=== PATIENT | female | born 1985 | race Caucasian/White ===

== ENCOUNTER 2017-07-13 06:09 | Day surgery (SDC) | payer OTHER ==
[~2017-07-13] VITALS: Ht 152.4 cm; Wt 55.3 kg
[~2017-07-13 06:09] MED LIST: AMOX500 PO; CITA20; CRUTCH3 USE; Depo-Prove150 MG/11 IM; ESCI20; GABA100 PO; HYDACE5 PO; IBUP600 PO; MEDR150I; NAPR375 PO; OXYACE5T PO; PENVK500 PO; PREG25; RXCLIN PO; RXHYDACE PO; TOCO400; TRAM50 PO; VENL75
[2017-07-14 04:09] LABS: BASOPHILS ABSOLUTE AUTO 0.02 K/mm3 (0.00-0.23); BASOPHILS PERCENT AUTO 0 % (0-2); EOSINOPHILS ABSOLUTE AUTO 0.03 K/mm3 (0.00-0.68); EOSINOPHILS PERCENT AUTO 0 % (0-6); Hematocrit 34.1 % (33.0-51.0); Hemoglobin 11.7 g/dL (11.5-16.0); IMMATURE GRAN ABSOLUTE AUTO 0.04 K/mm3 (0.00-0.10); IMMATURE GRAN PERCENT AUTO 0 % (0-1); LYMPHOCYTES ABSOLUTE AUTO 4.22 K/mm3 (0.84-5.20); LYMPHOCYTES PERCENT AUTO 33 % (21-46); MONOCYTES ABSOLUTE AUTO 1.01 K/mm3 (0.16-1.47); MONOCYTES PERCENT AUTO 8 % (4-13); Mean Corpuscular HGB 31.1 pg (26.0-34.0); Mean Corpuscular HGB Conc 34.3 g/dL (31.5-36.5); Mean Corpuscular Volume 91 fL (80-100); Mean Platelet Volume 10.9 fL (9.1-12.4); NEUTROPHILS ABSOLUTE AUTO 7.38 K/mm3 (1.96-9.15); NEUTROPHILS PERCENT AUTO 58 % (41-73); Platelet Count 189 K/mm3 (150-400); RDW Coefficient Variation 11.9 % (11.7-14.2); RDW Standard Deviation 39.6 fL (35.1-46.3); Red Blood Cell Count 3.76 M/mm3 (3.80-5.20)
[2017-07-14] MEDS ORDERED: IBUP800 PO (08:40)
[2017-07-14] MEDS ORDERED: Percocet 5-3251 EACH PO (08:41)
== END 2017-07-14 08:59 | disposition home or self-care (01) ==
LOC: ORSCMMR 06:09 → ORD 07:30 → ORSCMMR 09:00 → ORD 09:00 → SURS 09:45 → ORSCMMR 07-14 08:59
PROVIDERS: Obstetrics & Gynecology
PROC: 0UT7FZZ Resection of Bilateral Fallopian Tubes, Via Natural or Artificial Opening With Percutaneous Endoscopic Assistance (ICD-10-PCS; principal; 2017-07-13 07:30)
PROC: 0UT9FZZ Resection of Uterus, Via Natural or Artificial Opening With Percutaneous Endoscopic Assistance (ICD-10-PCS; principal; 2017-07-13 07:30)
PROC: 0UT0FZZ Resection of Right Ovary, Via Natural or Artificial Opening With Percutaneous Endoscopic Assistance (ICD-10-PCS; principal; 2017-07-13 07:30)
DX: N80.3 Endometriosis of pelvic peritoneum (principal); R10.2 Pelvic and perineal pain; F17.210 Nicotine dependence, cigarettes, uncomplicated
CPT/HCPCS: 36415; 85025; 88307; J0171; J0690; J1100; J1170; J1885; J2250; J2405; J3010; J7120

== ENCOUNTER 2019-04-16 18:33 | Observation (INO) | payer OTHER ==
[~2019-04-16] VITALS: Ht 152.4 cm; Wt 52.2 kg
[~2019-04-16 18:33] MED LIST changes: +IBUP800 PO; +Percocet 5-3251 EACH PO
[2019-04-16] MEDS ORDERED: Prozac20 MG PO (19:27)
[2019-04-16] MEDS ORDERED: Atarax10 MG PO (19:32)
[2019-04-16 19:39] LABS: Source, Urine Clean Catch
[2019-04-16 19:39] LABS: BASOPHILS ABSOLUTE AUTO 0.04 K/mm3 (0.00-0.23); BASOPHILS PERCENT AUTO 0 % (0-2); EOSINOPHILS PERCENT AUTO 1 % (0-6); Hematocrit 41.3 % (33.0-51.0); IMMATURE GRAN ABSOLUTE AUTO 0.03 K/mm3 (0.00-0.10); IMMATURE GRAN PERCENT AUTO 0 % (0-1); LYMPHOCYTES ABSOLUTE AUTO 2.59 K/mm3 (0.84-5.20); LYMPHOCYTES PERCENT AUTO 26 % (21-46); MONOCYTES ABSOLUTE AUTO 0.67 K/mm3 (0.16-1.47); MONOCYTES PERCENT AUTO 7 % (4-13); Mean Corpuscular HGB 31.8 pg (26.0-34.0); Mean Corpuscular HGB Conc 33.9 g/dL (31.5-36.5); Mean Corpuscular Volume 94 fL (80-100); Mean Platelet Volume 9.9 fL (9.1-12.4); NEUTROPHILS ABSOLUTE AUTO 6.51 K/mm3 (1.96-9.15); NEUTROPHILS PERCENT AUTO 66 % (41-73); Platelet Count 287 K/mm3 (150-400); RDW Coefficient Variation 12.1 % (11.7-14.2); RDW Standard Deviation 42.2 fL (35.1-46.3); White Blood Cell Count 9.94 K/mm3 (4.00-11.30)
[2019-04-16 19:45] LABS: Appearance, Urine Clear (Clear); Bilirubin, Urine Neg (Neg); Blood, Urine Neg (Neg); Color, Urine Yellow (P-Yellow); Glucose Qualitative, Urine Neg (Neg); Ketones, Urine 1+ (Neg); Leukocyte Esterase, Urine Neg (Neg); Nitrite, Urine Neg (Neg); Protein, Urine Neg (Neg); Urobilinogen, Urine NORM (Normal)
[2019-04-16 19:56] LABS: U Amphetamine Screen Not Detected; U Barbituate Screen Not Detected; U Benzodiazapine Screen DETECTED; U Buprenorphine Screen Not Detected; U Cannabinoids Screen DETECTED; U Cocaine Screen Not Detected; U Methadone Screen Not Detected; U Methamphetamine Screen Not Detected; U Opiates Screen DETECTED; U Oxycodone Screen DETECTED; U Phencyclidine Screen Not Detected; U Propoxyphene Screen Not Detected
[2019-04-16 19:58] LABS: Alanine Aminotransfer (ALT/SGP 24 U/L (12-78); Albumin, Blood 3.9 g/dL (3.4-5.0); Albumin/Globulin Ratio 1.3 (0.8-1.8); Alk Phos 70 U/L (50-136); Anion Gap 5 mmol/L (6-16); Aspartate Aminotrans (AST/SGOT 14 U/L (12-37); Bilirubin, Total 0.5 mg/dL (0.1-1.0); Blood Urea Nitrogen 10 mg/dL (8-24); CO2, Blood 25 mmol/L (21-32); Calcium, Blood 8.8 mg/dL (8.5-10.1); Chloride, Blood 111 mmol/L (98-108); Creatinine, Blood 0.77 mg/dL (0.40-1.00); Ethanol (Alcohol), Blood, Med <3 mg/dL; Glomerular Filtration Rate >60 (60-); Glucose, Blood 96 mg/dL (70-99); Potassium, Blood 3.9 mmol/L (3.5-5.5); Salicylate 4.7 mg/dL (2.8-20.0); Sodium, Blood 141 mmol/L (136-145); Total Protein, Blood 6.9 g/dL (6.4-8.2)
[2019-04-16 20:03] LABS: Acetaminophen, Random <2.0 ug/mL (10.0-30.0)
== END 2019-04-18 19:20 | disposition short-term general hospital (02) ==
LOC: ER 18:33 → EOR 18:34
PROVIDERS: Physician Assistant; ADMIT Emergency Medicine
DX: F31.4 Bipolar disorder, current episode depressed, severe, without psychotic features (principal); S60.812A Abrasion of left wrist, initial encounter; S60.811A Abrasion of right wrist, initial encounter; F43.10 Post-traumatic stress disorder, unspecified; F43.20 Adjustment disorder, unspecified; F17.210 Nicotine dependence, cigarettes, uncomplicated; Z79.899 Other long term (current) drug therapy; Z88.8 Allergy status to other drugs, medicaments and biological substances; Z90.710 Acquired absence of both cervix and uterus; Z90.721 Acquired absence of ovaries, unilateral; Z90.79 Acquired absence of other genital organ(s); X78.8XXA Intentional self-harm by other sharp object, initial encounter
CPT/HCPCS: 80053; 81003; 81025; 84443; 85025; 90471; 90714; 99285-25; G0378; G0480; Q3014

== ENCOUNTER 2024-03-27 18:48 | Observation (INO) | payer OTHER ==
[~2024-03-27] VITALS: Ht 165.1 cm; Wt 68.0 kg
[~2024-03-27 18:48] MED LIST changes: +Atarax10 MG PO; +Prozac20 MG PO
[2024-03-27] MEDS ORDERED: Droperidol 5 mg/2 ml Vial IM PRN (20:50)
[2024-03-27 21:21] LABS: BASOPHILS ABSOLUTE AUTO 0.04 K/mm3 (0.00-0.23); BASOPHILS PERCENT AUTO 0 % (0-2); EOSINOPHILS ABSOLUTE AUTO 0.23 K/mm3 (0.00-0.68); EOSINOPHILS PERCENT AUTO 2 % (0-6); Hematocrit 43.2 % (33.0-51.0); Hemoglobin 14.9 g/dL (11.5-16.0); IMMATURE GRAN ABSOLUTE AUTO 0.04 K/mm3 (0.00-0.10); IMMATURE GRAN PERCENT AUTO 0 % (0-1); LYMPHOCYTES ABSOLUTE AUTO 2.86 K/mm3 (0.84-5.20); LYMPHOCYTES PERCENT AUTO 27 % (21-46); MONOCYTES ABSOLUTE AUTO 0.68 K/mm3 (0.16-1.47); MONOCYTES PERCENT AUTO 6 % (4-13); Mean Corpuscular HGB Conc 34.5 g/dL (31.5-36.5); Mean Corpuscular Volume 87 fL (80-100); Mean Platelet Volume 9.5 fL (9.1-12.4); NEUTROPHILS ABSOLUTE AUTO 6.89 K/mm3 (1.96-9.15); NEUTROPHILS PERCENT AUTO 64 % (41-73); Platelet Count 360 K/mm3 (150-400); RDW Coefficient Variation 12.4 % (11.7-14.2); RDW Standard Deviation 39.3 fL (35.1-46.3); Red Blood Cell Count 4.96 M/mm3 (3.80-5.20); White Blood Cell Count 10.74 K/mm3 (4.00-11.30)
[2024-03-27 21:39] LABS: Acetaminophen, Random <2.0 ug/mL (10.0-30.0); Alanine Aminotransfer (ALT/SGP 19 U/L (12-78); Albumin, Blood 3.7 g/dL (3.4-5.0); Albumin/Globulin Ratio 1.1 (0.8-1.8); Alk Phos 98 U/L (50-136); Anion Gap 11 mmol/L (3-11); Aspartate Aminotrans (AST/SGOT 15 U/L (12-37); Bilirubin, Total 0.3 mg/dL (0.1-1.0); Blood Urea Nitrogen 12 mg/dL (8-24); Bun/Creatinine Ratio 16.2 (12.0-20.0); CO2, Blood 18 mmol/L (21-32); Calcium, Blood 9.2 mg/dL (8.5-10.1); Chloride, Blood 115 mmol/L (98-108); Creatinine, Blood 0.74 mg/dL (0.40-1.00); Ethanol (Alcohol), Blood, Med <3 mg/dL; Globulin, Blood 3.3 g/dL (2.2-4.0); Glomerular Filtration Rate 104 (60-); Glucose, Blood 97 mg/dL (70-99); Potassium, Blood 3.7 mmol/L (3.5-5.5); Salicylate 4.8 mg/dL (2.8-20.0); Sodium, Blood 140 mmol/L (136-145)
[2024-03-28] MEDS ORDERED: QUET25 (05:57)
[2024-03-28] MEDS ORDERED: PRAZ2 PO (05:58)
[2024-03-28] MEDS ORDERED: ABILIFY MYCITE15 M2 PO (05:58)
[2024-03-28] MEDS ORDERED: DESV50 PO (05:59)
[2024-03-28] MEDS ORDERED: LORA.5 (05:59)
[2024-03-28] MEDS ORDERED: Divalproex Sod125 M1 PO (07:58)
[2024-03-28] MEDS ORDERED: DESVENLAFAXINE25 MG PO (07:59)
[2024-03-28 08:50] VITALS: BP 124/78
[2024-03-28] MEDS ORDERED: LORazepam 1 MG Tab PO ONE (09:00)
[2024-03-28] MEDS ORDERED: LORazepam 2 MG/ML 1ML Injection IV ONE (09:00)
[2024-03-28 12:21] LABS: U Amphetamine Screen DETECTED; U Barbituate Screen Not Detected; U Benzodiazapine Screen DETECTED; U Buprenorphine Screen Not Detected; U Cannabinoids Screen DETECTED; U Cocaine Screen Not Detected; U Methadone Screen Not Detected; U Methamphetamine Screen DETECTED; U Opiates Screen Not Detected; U Oxycodone Screen DETECTED; U Phencyclidine Screen Not Detected
[2024-03-28] MEDS ORDERED: ARIPiprazole 10 MG Tab PO ONE (13:50)
== END 2024-03-28 15:14 | disposition other institution (70) ==
LOC: ER 18:48 → EOR 18:49
PROVIDERS: ADMIT Emergency Medicine
DX: F31.60 Bipolar disorder, current episode mixed, unspecified (principal); R45.851 Suicidal ideations; F43.10 Post-traumatic stress disorder, unspecified; F17.200 Nicotine dependence, unspecified, uncomplicated; Z88.8 Allergy status to other drugs, medicaments and biological substances
CPT/HCPCS: 80053; 80320; 84703; 85025; 96372; 99285-25; A9270; G0378; G0480; J1790

== ENCOUNTER 2024-03-28 11:20 | Inpatient (IN) | payer OTHER ==
[~2024-03-28 11:20] MED LIST changes: +ABILIFY MYCITE15 M2 PO; +DESV50 PO; +DESVENLAFAXINE25 MG PO; +Divalproex Sod125 M1 PO; +LORA.5; +PRAZ2 PO; +QUET25
[2024-03-28] MEDS ORDERED: OLANZapine ODT 10 MG Tab MM PRN ×2 (14:15→16:05)
[2024-03-28] MEDS ORDERED: Polyethylene Glycol 3350 17 gm PO PRN (14:15)
[2024-03-28] MEDS ORDERED: Ondansetron 4 MG SoluTab MM PRN (14:15)
[2024-03-28] MEDS ORDERED: HydrOXYzine Pamoate 50 MG Cap PO PRN (14:20)
[2024-03-28] MEDS ORDERED: FLU VACC TS2024-25(6MOS UP)/PF 45 MCG/0.5 ML SYRINGE IM PRN (14:20)
[2024-03-28] MEDS ORDERED: Melatonin 3 MG Tab PO PRN (14:20)
[2024-03-28] MEDS ORDERED: Calcium Carbonate 500 MG Tab Chew PO PRN (14:20)
[2024-03-28] MEDS ORDERED: TraZODone HCl 50 MG Tab PO PRN (14:20)
[2024-03-28] MEDS ORDERED: Acetaminophen 325 MG TABLET PO PRN (14:20)
[2024-03-28] MEDS ORDERED: Ibuprofen 600 MG Tab PO PRN (14:20)
[2024-03-28] MEDS ORDERED: Aluminum Hydroxide 320MG/5ML 473 ML PO PRN (14:20)
[2024-03-28] MEDS ORDERED: LORazepam 1 MG Tab PO PRN (16:05)
[2024-03-28] MEDS ORDERED: DiphenhydrAMINE HCl 50 MG Cap PO PRN (16:05)
[2024-03-28] MEDS ORDERED: LORazepam 2 MG Tab PO PRN (16:05)
[2024-03-28] MEDS ORDERED: Haloperidol 5 MG Tab PO PRN (16:15)
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
--- NOTE | 2024-03-28 18:09 | NUR ---
SHIFT SUMMARY PT A/O X4; UNCOOPERATIVE WITH CARE, VERBALLY AGGRESSIVE, AND TEARFUL. PT HAS BEEN SLEEPING IN HER ROOM SINCE ADMISSION. UNWILLING TO ANSWER ADMISSION QUESTIONS AT THIS TIME. MONITORED VIA Q15 ROUNDING FOR SAFETY.
--- NOTE | 2024-03-29 05:32 | NUR ---
SHIFT SUMMARY At the beginning of the shift, pt was lying on her bed with eyes closed and appeared to be asleep. Respirations regular and unlabored, no apparent distress. No HS meds are scheculed. At about 0245 pt was up to nurses station asking to use the restroom. Pt was told there is a bathroom in her room and was taken back to her room by a staff member. Pt c/o being dizzy; BP 125/74 HR 76. Pt offered and drank water. Pt was very labile and stated that she was "scared." Featherer offered PRN lorazepam, which she accepted. Pt currently sleeping. Staff continues to monitor for safety and wellness.
[2024-03-29 08:23] VITALS: BP 150/108
[2024-03-29] MEDS ORDERED: Multivitamins 1 Tab PO SCH (09:00)
--- NOTE | 2024-03-29 09:49 | NUR ---
PT AGITATED, CONFRONTATIONAL, AND VERBALLY ABUSIVE. PT IS UPSET DUE TO HOME MEDICATIONS NOT BEING ORDERED YET. PT UNSURE OF WHAT SHE TAKES AND LIST OBTAINED FROM PHARMACY AT THIS TIME. PT WILLING TO TAKE PO ATIVAN, AND PO ATIVAN GIVEN BY THIS RN AT THIS TIME.
[2024-03-29] MEDS ORDERED: LORazepam 0.5 MG Tab PO PRN (10:45)
[2024-03-29] MEDS ORDERED: ARIPiprazole 5 MG Tab PO SCH (10:56)
--- NOTE | 2024-03-29 17:31 | NUR ---
SHIFT SUMMARY PT A/O X3. SHE IS COMPLIANT WITH MEDICATIONS, BUT IS TEARFUL, LABILE, AND AGITATED. SHE DID NOT PARTICIPATE IN ANY GROUPS BUT DID EAT BREAKFAST AND DINNER. SHE HAD VISITORS TODAY AND SHE HAD TEARFUL OUTBURSTS DURING BOTH VISITS. PT MEDICATED PER EMR FOR AGITATION. SHE DECLINED TO PARTICIPATE IN MOST ASSESSMENT QUESTIONS BUT THIS AM SHE DENIED SI OR ANY HALLUCINATIONS. PT MONITORED VIA Q15 ROUNDING FOR SAFETY.
[2024-03-29 20:34] VITALS: BP 132/80
[2024-03-29 21:00] VITALS: BP 132/80
[2024-03-29] MEDS ORDERED: Divalproex Sodium 125 MG CAP PO SCH (21:00)
[2024-03-29] MEDS ORDERED: Prazosin HCl 1 MG Cap PO SCH (21:00)
[2024-03-29] MEDS ORDERED: QUEtiapine Fumarate 25 MG Tab PO SCH (21:00)
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
--- NOTE | 2024-03-30 02:59 | NUR ---
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 Synagogue is [employer]. Has a outpatient case manager with [facility]; former outpatient case manager was Joelle Pope, but this individual recently left [facility].
--- NOTE | 2024-03-30 04:07 | NUR ---
Shift Summary: Night Pt completed admission papers. Denied SI/HI/AVH. Mood labile, affect congruent. Tearful when describing events leading to admit. Stated she has not engaged in cutting for approximately 5 months, no street drugs x2.5 weeks. Intermittent eye contact. Med compliant. Received multiple PRNs (see MAR) for sleeplessness, with moderate results. Denied physical complaints. Retired to bed without complications, but awoke intermittently throughout the night. Withdrawn to room for the majority of the evening, but emerged for meds and snack. No complications.
[2024-03-30] MEDS ORDERED: DESVENLAFAXINE 25 MG PO SCH (09:00)
[2024-03-30] MEDS ORDERED: ARIPiprazole 5 MG Tab PO SCH (09:00)
--- NOTE | 2024-03-30 13:17 | NUR ---
ASSUMED PT CARE @0700. PT AA&OX4. SPEECH AND EYE CONTACT APPROPRIATE. MOOD IS "BETTER THAN YESTERDAY" AFFECT IS CALM. PT DENIES SI, HI, AVH. SHE DOES REPORT POOR SLEEP AND AND ANXIETY OVER RECENT MEDICATION CHANGES. THIS RN ADVISED THAT SHE DISCUSS MEDICATION CHANGES WITH DR. RAMÍREZ SHE VERBALIZED UNDERSTANDING. PT HAS BEEN COMPLIANT WITH MEDICATIONS AND CARE . WILL CONTINUE POC
--- NOTE | 2024-03-30 14:19 | NUR ---
COUNCELOR CALL PT SPOKE WITH YOGESH LOMBARDO FOR SHORT TIME. PT THEN REQUESTED STAFF TO TALK TO COUNCELOR. GIVEN VERBAL PERMISSION, THIS NURSE SPOKE WITH COUNCELOR WHO WAS CONCERNED ABOUT PT ADMIT. COUNCELOR REQUESTING CALL FOR F/U APPTS. COUNCELOR INFORMED PT CURRENTLY IN DBT 1X WEEK AND THERAPY 1X WEEK WITH HER. MUNIRA PAN [phone]
--- NOTE | 2024-03-30 16:56 | NUR ---
VISITOR PT HAD SISTER VISIT TODAY. DURING VISIT PT BECAME UPSET AND LEFT VISITING ROOM AND RETURNED TO ROOM. SISTER VISIBLY UPSET, ESCORTED TO EXIT. SISTER REPORTS BEEN DEALING WITH THIS AND GETS HARD AND NOBODY KNOWS THE BEST ANSWERS TO HELP. SISTER REPORTS SHE TRIES TO PLACE BOUNDARIES BUT PT USES THOSE BOUNDARIES AGAINST HER. PROVIDED FAMILY WITH SUPPORT AND REASSURANCE.
--- NOTE | 2024-03-30 18:09 | NUR ---
SHIFT SUMMARY PT MORE PLEASANT AND COOPERATIVE TODAY. MEDICATION CHANGES R/T PT REFUSALS. PT HAS SEVERAL PHONE CALLS INCLUDING COUNSELOR AND VISITORS. PT PARTICIPATED IN GROUP AND ACTIVITIES TODAY. NO ACUTE CHANGES THIS SHIFT. WILL CONTINUE TO MONITOR AND PROVIDE SUPPORT NECESSARY.
[2024-03-30 20:25] VITALS: BP 102/53
--- NOTE | 2024-03-30 20:39 | NUR ---
Shift Note: Night Received Pt at 1900. Pt denied SI/HI/AVH. Endorsed anxiety 10/27 due to "life stuff" and continued admit status. Denied depression. Mood downcast, affect calm. Denied pain and physical complaints. Med compliant. Received PRNs (see MAR) for sleeplessness. Completed wrap-up group during snack. Retired to bed without complications.
[2024-03-30] MEDS ORDERED: LamoTRIgine 25 MG Tab PO SCH (21:00)
--- NOTE | 2024-03-31 04:03 | NUR ---
Shift Summary: Night Pt was in her room resting but awake at the start of shift. Participated in assessment, denying SI/HI/AVH. Discussed plan for the evening, with which Pt agreed. Pt completed wrap-up group. Ate 100% of snack. Med compliant; received multiple PRNs (see MAR) for sleeplessness. Retired to bed for the evening after receiving meds. No complications.
[2024-03-31 07:58] VITALS: BP 135/88
[2024-03-31] MEDS ORDERED: ARIPiprazole 10 MG Tab PO SCH (09:00)
--- NOTE | 2024-03-31 10:30 | NUR ---
PT A/O X4. IS PLEASANT AND COOPERATIVE. DENIES SI AND A/V/H. STATES SLEPT REALLY WELL. STATES SINCE SHE HAS BEEN ADMITTED SHE FEELS THAT SHE IS MORE ORGANIZED AND FEELING BACK ON TRACK. . AND SHE NEEDED A REALITY CHECK TO GET HERSELF TOGETHER." UP IN GROUP AND ACTIVITY ROOM WITH PEERS. ILL CONTINUE TO MONITOR.
--- NOTE | 2024-03-31 17:11 | NUR ---
SHIFT SUMMARY: PT A/O X4. PLEASANT AND COOPERATIVE. MED COMPLIANT. PT DENIES SI AND A/V/H. HAS BEEN IN A GOOD MOOD ALL DAY. PARTICIPATED IN GROUP ATIVIES AND MINGLES IN THE [place]. STATE SHE IS GOING THROUGH A LOT AT THIS TIME IN HER LIFE. SHE WILL DISCHARGE TOMORROW AND GO HOME WITH SISTER ERIC. WILL CONTINUE TO MONITOR
[2024-03-31 21:23] VITALS: BP 131/78
--- NOTE | 2024-04-01 04:03 | NUR ---
PATIENT WAS IN THE GROUP ROOM AT THE BEGINNING OF THE SHIFT, WATCHING TELEVISION WITH PEERS AND STAFF. SHE TOOK HER MEDICATIONS EARLY BECAUSE SHE WANTED TO GO TO BED, AND WAS IN BED AWAKE AT SNACK TIME, BUT DECLINED SNACK. SHE WAS PLEASANT AND COOPERATIVE WITH CARES, INCLUDING EVENING MEDICATIONS. SHE HAD NO S/SX SUICIDAL IDEATION THIS SHIFT. SHE SPENT MOST OF THE SHIFT IN BED RESTING WITH EYES CLOSED AND RESPIRATIONS CONFIRMED. CONTINUING TO MONITOR FOR SAFETY WITH Q15 MINUTE CHECKS.
[2024-04-01 08:01] VITALS: BP 129/76
[2024-04-01] MEDS ORDERED: ABILIFY MYCITE20 M2 PO (11:12)
[2024-04-01] MEDS ORDERED: LAMO25 PO (11:14)
--- NOTE | 2024-04-01 12:00 | NUR ---
DISCHARGE NOTE. PT HAS BEEN IN A POSITIVE AND UP LIFTED MOOD. PT A/O X4. PRTICIPATED IN GROUP ACTIVIES THIS MORNING. IS EXCITED ABOUT BEING DISCHARGED THIS DAY. GIVEN DISCHARGE INSTRUCTIONS, EDUCATION MATERIALS, MEDICATION TEACHING, DECLINED OFFER OF NICOTINE CESSATION REFERRAL/CALL.. PT HAD NO BELONGINGS TO RETURN. WENT HOME IN PAPER SCRUBS. PRESCRIPTIONS CALLED INTO [facility] AND SPOKE TO THAI PHARMACIST AT 10:59. PT VERBALLY RETURNED UNDERSTANDING OF INSTRUCTIONS. PT OUT TO FRIENDS CAR TO GO HOME. AMBULATED OUT WITHOUT DIFFICULITY.
== END 2024-04-01 11:42 | disposition home or self-care (01) | DRG 882 ==
LOC: BHU 11:20
PROVIDERS: ADMIT Psychiatry & Neurology Psychiatry
DX: F43.25 Adjustment disorder with mixed disturbance of emotions and conduct (principal); F31.60 Bipolar disorder, current episode mixed, unspecified; Z87.442 Personal history of urinary calculi; F31.9 Bipolar disorder, unspecified; F43.10 Post-traumatic stress disorder, unspecified; Z90.710 Acquired absence of both cervix and uterus; Z90.722 Acquired absence of ovaries, bilateral; Z90.79 Acquired absence of other genital organ(s); F17.210 Nicotine dependence, cigarettes, uncomplicated; Z98.890 Other specified postprocedural states; Z88.8 Allergy status to other drugs, medicaments and biological substances
CPT/HCPCS: 93005; 93010; A9270